=== PATIENT | male | born 1995 | race Caucasian/White ===

== ENCOUNTER 2022-10-22 10:23 | Emergency (ER) | payer OTHER ==
--- NOTE | 2022-10-22 10:25 | ERPHSYRPT ---
- History of Present Illness Time Seen by Provider: 10/22/22 10:25 Source: patient Exam Limitations: no limitations Physician History: This is an overweight male who has a history of asthma but is not taking any medications at this time. Patient states his asthma comes and goes so he is not on any inhalers or nebulizers at this time. He has no known drug allergies. Yesterday, the patient began having a cough and sore throat and feels as though his lungs are "filling up". He does not have chest pain. He has not measured a fever but he feels as though he might have 1. He has had no nausea vomiting or diarrhea. He has no abdominal pain. Timing/Duration: yesterday Activities at Onset: activity (Worsen) Severity of Dyspnea-Max: moderate Severity of Dyspnea-Current: moderate Possible Cause: occasional episodes Modifying Factors: Improves With: activity Associated Symptoms: cough (Worsens), wheezing Allergies/Adverse Reactions: No Known Drug Allergies Allergy (Verified 10/22/22 10:51) Travel Risk - International Travel Have you traveled outside of the country in past 3 weeks: No - Coronavirus Screening Are you exhibiting any of the following symptoms?: Yes Symptoms: Cough: New Onset, Shortness of Breath Close contact with a COVID-19 positive Pt in past 14-21 Days: No - Review of Systems Constitutional: No Symptoms Eyes: No Symptoms Ears, Nose, & Throat: No Symptoms Respiratory: Cough, Dyspnea on Exertion (MCGOWAN), Wheezing Cardiac: No Symptoms Abdominal/Gastrointestinal: No Symptoms Genitourinary Symptoms: No Symptoms Musculoskeletal: No Symptoms Skin: No Symptoms Neurological: No Symptoms Psychological: No Symptoms Endocrine: No Symptoms Hematologic/Lymphatic: No Symptoms Immunological/Allergic: No Symptoms All Other Systems: Reviewed and Negative - Past Medical History Pertinent Past Medical History: Yes - Nursing Vital Signs Nursing Vital Signs: Initial Vital Signs Temperature 97.7 F 10/22/22 10:24 Pulse Rate 107 H 10/22/22 10:24 Respiratory Rate 11 L 10/22/22 10:24 Blood Pressure 153/103 10/22/22 10:24 O2 Sat by Pulse Oximetry 95 10/22/22 10:24 Pain Scale Pain Intensity 0 - Physical Exam General Appearance: mild distress, alert, anxiety, obese Eye Exam: PERRL/EOMI, eyes nml inspection Ears, Nose, Throat Exam: hearing grossly normal, normal ENT inspection, normal pharynx Neck Exam: normal inspection, non-tender, supple, full range of motion Respiratory Exam: normal breath sounds, respiratory distress (Mild), airway intact, No chest tenderness Cardiovascular/Chest Exam: tachycardia Abdominal/Gastrointestinal Exam: soft, normal bowel sounds, No tenderness Rectal Exam: not done Extremity Exam: non-tender, normal range of motion, normal inspection, normal capillary refill, no calf tenderness, no pedal edema, pelvis stable Neurologic Exam: alert, oriented x 3, cooperative, timber hewer II-XII nml as tested, normal mood/affect, nml cerebellar function, nml station & gait, sensation nml Skin Exam: normal color, warm, dry Lymphatic Exam: No adenopathy SpO2 Interpretation: normal O2 Delivery: Room Air - Course Nursing assessment & vital signs reviewed: Yes EKG Interpreted by Me: RATE ([id number]), Sinus Tach, NORMAL AXIS, NORMAL INTERVALS, NORMAL QRS, NORMAL ST-T, Other (No acute ischemic changes on today's twelve-lead EKG.) Ordered Tests: Active Orders 24 hr Category Date Time Status Manager Medical STAT Care 10/22/22 10:33 Active EKG-ER Only STAT Care 10/22/22 10:32 Active IV Insertion STAT Care 10/22/22 10:32 Active Pulse Oximetry (ED) STAT Care 10/22/22 10:32 Active CHEST 1 VIEW (PORTABLE) Stat Exams 10/22/22 10:33 Completed BLOOD CULTURE Stat Lab 10/22/22 10:33 Ordered CBC W DIFF Stat Lab 10/22/22 11:10 Completed CMP Stat Lab 10/22/22 11:10 Completed D-DIMER QUANTITATIVE Stat Lab 10/22/22 11:10 Completed NT PRO BNPII Stat Lab 10/22/22 Ordered TROPONIN Q4H Lab 10/22/22 11:10 Received TROPONIN Q4H Lab 10/22/22 14:45 Ordered TROPONIN Q4H Lab 10/22/22 18:45 Ordered Respiratory Therapy Assessment DAILY RT 10/22/22 10:59 Active Medication Summary Discontinued Medications Generic Name Dose Route Start Last Admin Trade Name Freq PRN Reason Stop Dose Admin Albuterol Sulfate 2.5 mg 10/22/22 10:32 10/22/22 10:40 Albuterol Sulfate 2.5 Mg/3 Ml Neb IH 10/22/22 10:33 2.5 mg STAT ONE Administration Albuterol Sulfate Confirm 10/22/22 10:38 Albuterol Sulfate 2.5 Mg/3 Ml Neb Administered 10/22/22 10:39 Dose 2.5 mg IH .STK-MED ONE Methylprednisolone Sodium 0 mg 10/22/22 10:32 10/22/22 11:03 Succinate 125 mg/ Sterile IV 10/22/22 10:33 125 mg Water 2 ml STAT ONE Administration Ceftriaxone Sodium/Dextrose 1 g in 50 mls @ 100 mls/hr 10/22/22 11:16 10/22/22 11:53 Rocephin 1 Gm-D5w 50 Ml Bag IV 10/22/22 11:45 Infused STAT STA Infusion Ceftriaxone Sodium/Dextrose Confirm 10/22/22 11:21 Rocephin 1 Gm-D5w 50 Ml Bag Administered 10/22/22 11:22 Dose 1 g in 50 mls @ ud IV .STK-MED ONE Methylprednisolone Sodium Succinate Confirm 10/22/22 10:59 Methylprednis Sod Succ 125 Mg/2 Ml Vial Administered 10/22/22 11:00 Dose 125 mg .ROUTE .STK-MED ONE Sterile Water Confirm 10/22/22 10:59 Water For Injection,Sterile 10 Ml Vial Administered 10/22/22 11:00 Dose 10 ml IJ .STK-MED ONE Lab/Rad Data: Laboratory Result Diagrams 10/22/22 11:10 10/22/22 11:10 Laboratory Results 10/22/22 10/22/22 10/22/22 Range/Units 11:10 11:10 11:10 WBC (4.0-10.5) x10^3/uL RBC (4.1-5.6) x10^6/uL Hgb (12.5-18.0) g/dL Hct (42-50) % MCV (78-100) fL MCH (26-32) pg MCHC (32-36) g/dL RDW (11.5-14.0) % Plt Count (150-450) x10^3/uL MPV (7.5-11.0) fL Gran % (36.0-66.0) % Immature Gran % (Auto) (0.00-0.4) % Nucleat RBC Rel Count (0.00-0.1) % Eos # (Auto) (0-0.5) x10^3/uL Immature Gran # (Auto) (0.00-0.03) x10^3u/L Absolute Lymphs (auto) (1.0-4.6) x10^3/uL Absolute Monos (auto) (0.0-1.3) x10^3/uL Absolute Nucleated RBC (0.00-0.01) x10^3u/L Lymphocytes % (24.0-44.0) % Monocytes % (0.0-12.0) % Eosinophils % (0.00-5.0) % Basophils % (0.0-0.4) % Absolute Granulocytes (1.4-6.9) x10^3/uL Basophils # (0-0.4) x10^3/uL D-Dimer 0.33 (0.0-0.50) mg/L Sodium (137-145) mmol/L Potassium (3.5-5.1) mmol/L Chloride (98-107) mmol/L Carbon Dioxide (22-30) mmol/L Anion Gap (5-15) MEQ/L BUN (9-20) mg/dL Creatinine (0.66-1.25) mg/dL Estimated GFR ML/MIN Glucose (74-106) mg/dL Calcium (8.4-10.2) mg/dL Total Bilirubin (0.2-1.3) mg/dL AST (17-59) U/L ALT (0-50) U/L Alkaline Phosphatase (38-126) U/L Serum Total Protein (6.3-8.2) g/dL Albumin (3.5-5.0) g/dL Influenza Type A Ag NEGATIVE (NEGATIVE) Influenza Type B Ag NEGATIVE (NEGATIVE) RSV (PCR) NEGATIVE (NEGATIVE) SARS-CoV-2 (PCR) NEGATIVE (NEGATIVE) Group A Strep Antibody NOT DETECTED (NEGATIVE) 10/22/22 10/22/22 Range/Units 11:10 11:10 WBC 11.0 H (4.0-10.5) x10^3/uL RBC 5.97 H (4.1-5.6) x10^6/uL Hgb 16.1 (12.5-18.0) g/dL Hct 49.4 (42-50) % MCV 82.7 (78-100) fL MCH 27.0 (26-32) pg MCHC 32.6 (32-36) g/dL RDW 12.5 (11.5-14.0) % Plt Count 185 (150-450) x10^3/uL MPV 12.0 H (7.5-11.0) fL Gran % 71.5 H (36.0-66.0) % Immature Gran % (Auto) 0.3 (0.00-0.4) % Nucleat RBC Rel Count 0.0 (0.00-0.1) % Eos # (Auto) 0.36 (0-0.5) x10^3/uL Immature Gran # (Auto) 0.03 (0.00-0.03) x10^3u/L Absolute Lymphs (auto) 1.76 (1.0-4.6) x10^3/uL Absolute Monos (auto) 0.91 (0.0-1.3) x10^3/uL Absolute Nucleated RBC 0.00 (0.00-0.01) x10^3u/L Lymphocytes % 16.0 L (24.0-44.0) % Monocytes % 8.3 (0.0-12.0) % Eosinophils % 3.3 (0.00-5.0) % Basophils % 0.6 (0.0-0.4) % Absolute Granulocytes 7.89 H (1.4-6.9) x10^3/uL Basophils # 0.07 (0-0.4) x10^3/uL D-Dimer (0.0-0.50) mg/L Sodium 135 L (137-145) mmol/L Potassium 7.0 H* (3.5-5.1) mmol/L Chloride 101 (98-107) mmol/L Carbon Dioxide 21 L (22-30) mmol/L Anion Gap 20.2 H (5-15) MEQ/L BUN 6 L (9-20) mg/dL Creatinine 0.52 L (0.66-1.25) mg/dL Estimated GFR > 60.0 ML/MIN Glucose 291 H (74-106) mg/dL Calcium 8.7 (8.4-10.2) mg/dL Total Bilirubin 2.80 H (0.2-1.3) mg/dL AST 92 H (17-59) U/L ALT 64 H (0-50) U/L Alkaline Phosphatase 167 H (38-126) U/L Serum Total Protein 9.6 H (6.3-8.2) g/dL Albumin 5.0 (3.5-5.0) g/dL Influenza Type A Ag (NEGATIVE) Influenza Type B Ag (NEGATIVE) RSV (PCR) (NEGATIVE) SARS-CoV-2 (PCR) (NEGATIVE) Group A Strep Antibody (NEGATIVE) - Progress Progress: improved, re-examined Air Movement: good Progress Note: 10/22/22 11:17 Chest x-ray was read by the radiologist. The impression was reviewed by me. There is minimal left base infiltrate versus atelectasis. There are old rib fractures on the left. Ribs 8 and 9. This patient's medical issue is 1 of moderate complexity. The level of complexity and the work-up performed was based on review of the patient's past medical history, review of the patient's medication list, review of the patient's drug allergy list, history of present illness and physical findings on examination. Work-up included placement of intravenous line, obtaining viral swabs and group A strep swab, performing a twelve-lead EKG, chest x-ray, CBC, CMP, D-dimer, troponin level, and blood culture. It was difficult to have blood draw from the IV site. He did initially allow some blood to be obtained in the separate stick. However, he then refused after multiple sticks did not produce successful blood draw. I reviewed the results of his work-up. Patient peers to have a minimal/mild left base infiltrate which fits with his clinical picture. We are providing the patient with Rocephin 1 g intravenously. He will be discharged to home with the prescription for an albuterol inhaler, steroids, Z- Binh. 10/22/22 12:04 This patient's chemistry specimen is hemolyzed. The patient is aware of the present abnormal lab readings that are most likely secondary to hemolyzed specimen. However, he is refusing a repeat blood draw to confirm. He is aware that I cannot be 100% certain that the lab results are normal and not significantly abnormal. He will sign a refusal of repeat lab draws. He is aware that refusing repeat blood draw could show significant abnormalities in these abnormalities might be dangerously high or low. Blood Culture(s) Obtained: No Antibiotics given: Yes Counseled pt/family regarding: lab results, diagnosis, need for follow-up, rad results Medical Desision Making - Independent Historian Additional History obtained from: Spouse - Discussion of managment Reviewed:: Test results Agreed on:: Treatment plan, need for follow-up - Diagnostic Testing Diagnostic test were ordered, analyzed, and reviewed by me: Yes Radiological Interpretation: Reviewed by me, Teleradiologist Report - Risk of complications The pt has a mod risk of morbidity or mortality based on: Need for prescription drug management - Departure Departure Disposition: Home Clinical Impression: Left pulmonary infiltrate on CXR Condition: Stable Critical Care Time: No Referrals: JEYSON PETERSON [ACTIVE STAFF] - Follow up/PCP as directed Additional Instructions: Drink plenty fluids. Avoid exposure to any type of smoke. Take your medication as prescribed. Follow-up with your primary care physician for further evaluation management. Prescriptions: Prednisone 10 mg [Deltasone 10 mg] 10 mg PO TID #12 tablet Albuterol 2.5 mg/3 ml Neb [Proventil 2.5 mg/3 ml Neb] 2.5 mg IH Q6H #25 units Albuterol 8 gm Mdi Hfa [Ventolin Hfa MDI] 8 gm IH Q4H #1 unit Azithromycin 250 mg [Zithromax 250 MG TABLET] 250 mg PO ZPACK #6 tablet
[2022-10-22] MEDS ORDERED: solu-MEDROL 125 MG, Sterile H2O 10 ml 2 ML IV ONE ×2 (10:32)
[2022-10-22] MEDS ORDERED: PROVENTIL 2.5 MG/3 ML NEB IH ONE ×2 (10:32→10:38)
[2022-10-22] MEDS ORDERED: Sterile H2O 10 ml IJ ONE (10:59)
[2022-10-22] MEDS ORDERED: solu-MEDROL ONE (10:59)
--- NOTE | 2022-10-22 11:10 | XRAY ---
Indication: Cough and short of breath. Comparison: None Portable chest demonstrates minimal left base infiltrate versus atelectasis. Remaining heart and lungs unremarkable. Bony thorax intact with old posterior left 8/9 rib fractures.
[2022-10-22 11:16] LABS: Absolute Neutrophil Ct (ANC) 7.89 x10^3/uL (1.4-6.9); BASOPHIL % 0.6 % (0.0-0.4); Basophil (Absolute #) 0.07 x10^3/uL (0-0.4); Eosinophil % 3.3 % (0.00-5.0); Eosinophil (Absolute #) 0.36 x10^3/uL (0-0.5); Hematocrit 49.4 % (42-50); Hemoglobin 16.1 g/dL (12.5-18.0); IMMATURE GRAN # 0.03 x10^3u/L (0.00-0.03); IMMATURE GRAN % 0.3 % (0.00-0.4); Lymphocyte (Absolute #) 1.76 x10^3/uL (1.0-4.6); Mean Cell Volume 82.7 fL (78-100); Mean Corpuscular Hgb Concent. 32.6 g/dL (32-36); Monocyte (Absolute #) 0.91 x10^3/uL (0.0-1.3); Monocytes % 8.3 % (0.0-12.0); Neutrophil % 71.5 % (36.0-66.0); Platelet Count 185 x10^3/uL (150-450); Red Blood Count 5.97 x10^6/uL (4.1-5.6); Red Cell Distribution Width 12.5 % (11.5-14.0)
[2022-10-22] MEDS ORDERED: ROCEPHIN 1 Gm-D5w 50 ml Bag** 1 G/50 ML IVPB IV STA (11:16)
[2022-10-22] MEDS ORDERED: ROCEPHIN 1 Gm-D5w 50 ml Bag** 1 G/50 ML IVPB IV ONE (11:21)
[2022-10-22 11:50] LABS: INFLUENZA A NEGATIVE (NEGATIVE); INFLUENZA B NEGATIVE (NEGATIVE); RESPIRATORY SYNCTIAL VIRUS NEGATIVE (NEGATIVE); SARS-CoV-2 Xpert Express NEGATIVE (NEGATIVE)
[2022-10-22 11:54] LABS: ALKALINE PHOSPHATASE 167 U/L (38-126); ANION GAP 20.2 MEQ/L (5-15); BLOOD UREA NITROGEN 6 mg/dL (9-20); CHLORIDE 101 mmol/L (98-107); Calcium 8.7 mg/dL (8.4-10.2); Carbon Dioxide 21 mmol/L (22-30); Creatinine 1 0.52 mg/dL (0.66-1.25); EST GLOMERULAR FILTRATION RATE > 60.0 ML/MIN; Glucose 291 mg/dL (74-106); SGOT/AST 92 U/L (17-59); SGPT/ALT 64 U/L (0-50); SODIUM 135 mmol/L (137-145); Total Protein 9.6 g/dL (6.3-8.2)
[2022-10-22 12:15] VITALS: BP 148/98; PULSE 112; O2SAT 97
== END 2022-10-22 12:23 | disposition home or self-care (01) ==
LOC: ED 10:23
DX: R91.8 Other nonspecific abnormal finding of lung field (principal); J02.9 Acute pharyngitis, unspecified; R05.1 Acute cough; J45.909 Unspecified asthma, uncomplicated; Z79.52 Long term (current) use of systemic steroids; Z79.899 Other long term (current) drug therapy
CPT/HCPCS: 0241U; 36000; 36415; 71045; 80053; 85025; 85379; 87651; 93005; 93041; 94640; 94760; 96365; 96374; 99284; J0696; J2930; J7609; A9270-GY

== ENCOUNTER 2022-12-28 12:08 | Emergency (ER) | payer OTHER ==
--- NOTE | 2022-12-28 12:22 | ERPHSYRPT ---
- History of Present Illness Time Seen by Provider: 12/28/22 12:22 Source: patient, family Exam Limitations: no limitations Physician History: This is a 27-year-old overweight male who presents with a tender, enlarging subcutaneous scrotal mass on the left side. It has been present for several days and today he noticed it enlarging more and increasing tenderness. He has not had any fevers. Patient is not on any medication and he has no known drug allergies. Timing/Duration: day(s) (Present over the last several days), worse Activites at Onset: none Quality: aching Onset Location: scrotal (Left side caudal) Pain Radiation: none Severity of Pain-Max: moderate Severity of Pain-Current: moderate Associated Symptoms: denies symptoms Prior abdominal problems: none Sexual intercourse history: non-contributory Allergies/Adverse Reactions: No Known Drug Allergies Allergy (Verified 12/28/22 12:33) Hx Tetanus, Diphtheria Vaccination/Date Given: No Hx Influenza Vaccination/Date Given: No Hx Pneumococcal Vaccination/Date Given: No Travel Risk - International Travel Have you traveled outside of the country in past 3 weeks: No - Coronavirus Screening Are you exhibiting any of the following symptoms?: No Close contact with a COVID-19 positive Pt in past 14-21 Days: No - Vaccine Status Have you recieved a Covid-19 vaccination: No - Past Medical History Pertinent Past Medical History: Yes Respiratory History: Asthma - Past Surgical History Gastrointestinal: Appendectomy - Social History Smoking Status: Current some day smoker Exposure to second hand smoke: No Drug Use: marijuana Patient Lives Alone: No - Review of Systems Constitutional: No Symptoms Eyes: No Symptoms Ears, Nose, & Throat: No Symptoms Respiratory: No Symptoms Cardiac: No Symptoms Abdominal/Gastrointestinal: No Symptoms Genitourinary Symptoms: Other (Left scrotal tenderness with subcutaneous swelling) Musculoskeletal: No Symptoms Skin: No Symptoms Neurological: No Symptoms Psychological: No Symptoms Endocrine: No Symptoms Hematologic/Lymphatic: No Symptoms Immunological/Allergic: No Symptoms All Other Systems: Reviewed and Negative - Nursing Vital Signs Nursing Vital Signs: Initial Vital Signs Temperature 96.6 F 12/28/22 12:17 Pulse Rate 93 H 12/28/22 12:17 Blood Pressure 146/75 12/28/22 12:17 O2 Sat by Pulse Oximetry 96 12/28/22 12:17 Pain Scale Pain Intensity 4 - Physical Exam General Appearance: no apparent distress, alert, anxiety, obese Eye Exam: PERRL/EOMI, eyes nml inspection Ears, Nose, Throat Exam: normal ENT inspection, moist mucous membranes Neck Exam: normal inspection, non-tender, supple, full range of motion Respiratory Exam: lungs clear, prolonged expirations, No chest tenderness, No respiratory distress Gastrointestinal/Abdomen Exam: No tenderness Rectal Exam: not done Male Genital Exam: scrotum tenderness (L) (With associated) Back Exam: normal inspection, normal range of motion, No CVA tenderness, No vertebral tenderness Extremity Exam: normal inspection, normal range of motion, pelvis stable Neurologic Exam: alert, oriented x 3, cooperative, falsework builder II-XII nml as tested, normal mood/affect, nml cerebellar function, nml station & gait, sensation nml Skin Exam: normal color, warm, dry Lymphatic Exam: No adenopathy SpO2 Interpretation: normal O2 Delivery: Room Air Procedures - Incision and Drainage Time of Procedure: 13:30 Timeout: Performed Site: Left Anesthesia: 1% Lidocaine (scrotum, caudal aspect) cc's of anesthesia: 4 Blade Size: 11 I & D Procedure: betadine prep Results: moderate amount pus Progress: Patient tolerated procedure well. The culture was sent to microbiology for evaluation. Wound was covered with a pressure dressing. This patient's medical issue is 1 of low complexity. Level of complexity in the procedure performed is based on review of the patient's past medical history, review of the patient's medication list, review of the patient's drug allergy list, history of present illness, and physical findings on examination. No radiographic studies are necessary. We did send the abscess content/pus for culture and sensitivity. Patient was given a Bactrim DS pill as well as [place] 5/325 pill here in the emergency department. We will send additional similar medication to the patient's pharmacy for further treatment and management. Patient will be given wound instructions. - Course Nursing assessment & vital signs reviewed: Yes Ordered Tests: Active Orders 24 hr Category Date Time Status CULTURE,WOUND Stat Lab 12/28/22 13:34 Ordered Medication Summary Discontinued Medications Generic Name Dose Route Start Last Admin Trade Name Freq PRN Reason Stop Dose Admin Hydrocodone Bitart/Acetaminophen 1 tab 12/28/22 13:35 Hydrocodone/Apap 5/325 1 Tab Tablet PO 12/28/22 13:36 STAT ONE Lidocaine/Epinephrine 5 ml 12/28/22 13:20 12/28/22 13:26 Lidocaine Hcl/Epinephrine 1% 20 Ml IJ 12/28/22 13:21 5 ml STAT ONE Administration Trimethoprim/Sulfamethoxazole 1 tab 12/28/22 13:35 Smz/Tmp Ds Tablet 1 Tablet PO 12/28/22 13:36 STAT ONE - Progress Progress: improved, pain not gone completely Counseled pt/family regarding: diagnosis, need for follow-up Medical Desision Making - Independent Historian Additional History obtained from: Spouse - Diagnostic Testing Diagnostic test were ordered, analyzed, and reviewed by me: No - Risk of complications The pt has a mod risk of morbidity or mortality based on: Need for prescription drug management - Departure Departure Disposition: Home Clinical Impression: Abscess of scrotal wall Condition: Stable Critical Care Time: No Referrals: ROEL PARIKH HEAD PUMPER [Primary Care Provider] - Follow up/PCP as directed Additional Instructions: Sitz bath with warm soapy water and/or Epsom salt soaks 3 times a day. Do not apply lotions ointments or creams to area. During each bath session, palpate the area to keep the wound open and draining. Take your antibiotics as prescribed. Follow-up with your primary care provider for further evaluation management. Prescriptions: Hydrocodone/APAP 5/325 [[place] 5/325 mg] 1 each PO Q8H PRN PRN #9 tablet MDD 3 PRN Reason: Pain Smz/Tmp Ds Tablet [Bactrim Ds Tablet] 1 udtab PO BID #14 tablet
[2022-12-28] MEDS ORDERED: XYLOCAINE 1%/Epi 1:100000 MDV 20 ML IJ ONE (13:20)
[2022-12-28] MEDS ORDERED: NORCO 5/325 MG PO ONE (13:35)
[2022-12-28] MEDS ORDERED: BACTRIM DS TABLET PO ONE ×2 (13:35→13:37)
[2022-12-28 13:36] VITALS: BP 133/74; PULSE 84; O2SAT 97
[2022-12-28] MEDS ORDERED: NORCO 5/325 MG ONE (13:37)
== END 2022-12-28 13:52 | disposition home or self-care (01) ==
LOC: ED 12:08
DX: N49.2 Inflammatory disorders of scrotum (principal); Z79.891 Long term (current) use of opiate analgesic; Z28.310 Unvaccinated for COVID-19; Z72.0 Tobacco use
CPT/HCPCS: 55100; 87070; 87077; 87186; 96372; 99283; A9270-GY